=== PATIENT | male | born 1985 | race Hispanic/Latino ===

== ENCOUNTER 2024-05-08 16:56 | Inpatient (IN) | payer SELFPAY, OTHER ==
[~2024-05-08 16:56] MED LIST: Iopamidol-370 76% 500 ML MDV (1 ML CHARGE) ONE
[2024-05-08] MEDS ORDERED: Ondansetron PF 4 MG/2 ML Vial ONE (17:08)
[2024-05-08] MEDS ORDERED: fentaNYL 50 mcg/mL 1 mL Vial ONE (17:08)
[2024-05-08] MEDS ORDERED: Lidocaine/Transparent Dressing 1 EACH KIT ONE (17:09)
[2024-05-08 17:34] LABS: #Basophils Less than 0.03 10x3/uL (0.0-0.2); #Eosinphils Less than 0.03 10x3/uL (0.0-0.7); %Basophils 0.1 % (0.0-1.0); %Lymphocytes 10.3 % (21.0-51.0); %Monocytes 6.7 % (0.0-10.0); %Neutrophils 82.4 % (42.0-75.0); Hematocrit 44.3 % (42.0-52.0); Mean Corpuscular HGB CONC 36.1 g/dL (32.0-36.0); Mean Corpuscular Hemoglobin 34.5 pg (27.0-31.0); Mean Corpuscular Volume 95.5 fL (78.0-98.0); Mean Platelet Volume 8.8 fL (7.4-10.4); Platelet Count 306 10x3/uL (130-400); Red Blood Cell (RBC) Count 4.64 mill/uL (4.70-6.10)
[2024-05-08 17:52] LABS: ALT (SGPT) 52 U/L (8-55); AST (SGOT) 38 U/L (5-34); Albumin 4.3 g/dL (3.5-5.0); Alkaline Phosphatase 98 U/L (40-110); Anion Gap 18 mmol/L (10-20); BUN (Urea Nitrogen) 9 mg/dL (8.9-20.6); Bilirubin, Total 0.9 mg/dL (0.2-1.2); Calc. Creatinine Clearance 0 mL/min (70-130); Calcium 9.5 mg/dL (7.8-10.44); Carbon Dioxide 20 mmol/L (22-29); Chloride 104 mmol/L (98-107); Estimated GFR 115; Globulin 3.3 g/dL (2.4-3.5); Glucose 140 mg/dL (70-105); Potassium 3.6 mmol/L (3.5-5.1); Protein, Total 7.6 g/dL (6.0-8.3); Sodium 138 mmol/L (136-145)
[2024-05-08] MEDS ORDERED: CEFAZOLIN 2 GM VIAL ONE (19:15)
[2024-05-08] MEDS ORDERED: Morphine 4 MG/ML VIAL ONE (19:15)
[2024-05-08] MEDS ORDERED: Boostrix 0.5 ML (Tdap) VIAL (>/=7 yrs of age) ONE (19:15)
[2024-05-08] MEDS ORDERED: hydrALAZINE 20 MG/ML VIAL SLOW IVP PRN (19:45)
[2024-05-08] MEDS ORDERED: Ondansetron PF 4 MG/2 ML Vial IVP PRN (19:45)
[2024-05-08 21:32] VITALS: BMI 23.6
[2024-05-08] MEDS: traMADol HCl 50 MG TAB PO PRN (21:42)
[2024-05-08] MEDS: Dexamethasone 4 mg/ml Vial SLOW IVP SCH (21:43)
[2024-05-08] MEDS: Famotidine/PF 20 mg/2ml Vial SLOW IVP SCH (21:43)
[2024-05-09] MEDS: Dexamethasone 4 mg/ml Vial SLOW IVP SCH (04:59)
[2024-05-09 05:24] LABS: #Basophils Less than 0.03 10x3/uL (0.0-0.2); #Eosinphils Less than 0.03 10x3/uL (0.0-0.7); %Basophils 0.1 % (0.0-1.0); %Lymphocytes 6.6 % (21.0-51.0); %Monocytes 2.7 % (0.0-10.0); %Neutrophils 90.1 % (42.0-75.0); Hematocrit 45.1 % (42.0-52.0); Hemoglobin 15.7 g/dL (14.0-18.0); Mean Corpuscular HGB CONC 34.8 g/dL (32.0-36.0); Mean Corpuscular Hemoglobin 34.1 pg (27.0-31.0); Mean Platelet Volume 8.9 fL (7.4-10.4); Platelet Count 303 10x3/uL (130-400); RBC Distribution Width 12.1 % (11.5-14.5)
[2024-05-09 05:34] LABS: Anion Gap 13 mmol/L (10-20); BUN (Urea Nitrogen) 8 mg/dL (8.9-20.6); Calc. Creatinine Clearance 95 mL/min (70-130); Calcium 9.3 mg/dL (7.8-10.44); Carbon Dioxide 24 mmol/L (22-29); Chloride 102 mmol/L (98-107); Estimated GFR 115; Glucose 133 mg/dL (70-105); Potassium 4.2 mmol/L (3.5-5.1); Sodium 135 mmol/L (136-145)
[2024-05-10] MEDS: Dexamethasone 4 mg/ml Vial SLOW IVP SCH (08:39)
[2024-05-10] MEDS: Acetaminophen 325 MG TAB PO PRN (13:35)
[2024-05-10] MEDS: TETANUS, DIPHTHERIA TOX,ADULT (TDVAX) 0.5 ML VIAL IM ONE (19:31)
[2024-05-10] MEDS: Morphine 4 MG/ML VIAL SLOW IVP PRN (22:21)
[2024-05-11] MEDS ORDERED: Vancomycin 1 GM VIAL ONE (06:26)
[2024-05-11] MEDS ORDERED: Bacitracin Zinc Ointment 30 gm TUBE ONE (06:26)
[2024-05-11] MEDS ORDERED: Lidocaine 1% PF 5 ML VIAL ONE (06:50)
[2024-05-11] MEDS ORDERED: Fentanyl 250 MCG/5 ML VIAL ONE (06:50)
[2024-05-11] MEDS ORDERED: Rocuronium Bromide 10 MG/ML (10ML VIAL) ONE (06:50)
[2024-05-11] MEDS ORDERED: PROPOFOL 20 ML ONE (06:50)
[2024-05-11] MEDS ORDERED: Sodium Chloride 0.9% 100 ML ONE ×2 (07:07→09:32)
[2024-05-11] MEDS ORDERED: CEFAZOLIN 2 GM VIAL ONE (07:07)
[2024-05-11] MEDS ORDERED: CEFAZOLIN 2 GM in Sodium Chloride 0.9% 100 ML IVPB SCH (07:30)
[2024-05-11] MEDS ORDERED: Esmolol 100 MG/10 ML VIAL ONE (07:44)
[2024-05-11] MEDS ORDERED: Dexamethasone 4 mg/ml Vial ONE (08:05)
[2024-05-11] MEDS ORDERED: Vecuronium 10 MG VIAL ONE (08:39)
[2024-05-11] MEDS ORDERED: Dexmedetomidine 200 MCG/2 ML VIAL ONE (09:31)
[2024-05-11] MEDS ORDERED: Ondansetron PF 4 MG/2 ML Vial ONE (09:35)
[2024-05-11] MEDS ORDERED: Lidocaine 2% PF 5 ML VIAL ONE (09:37)
[2024-05-11] MEDS ORDERED: Glycopyrrolate 0.2 MG/ML 5 ML SYRINGE ONE (09:49)
[2024-05-11] MEDS ORDERED: NEOSTIGMINE 3 MG/3 ML SYRINGE ONE (09:49)
[2024-05-11] MEDS ORDERED: Promethazine HCl 25 MG/ML VIAL IM PRN (09:52)
[2024-05-11] MEDS ORDERED: HYDROmorphone 2 MG/ML VIAL SLOW IVP PRN (09:52)
[2024-05-11] MEDS ORDERED: Morphine Sulfate 2 MG/ML SYRINGE SLOW IVP PRN (09:52)
[2024-05-11] MEDS ORDERED: Ondansetron HCl/PF 4 MG/2 ML Vial IVP PRN (09:52)
[2024-05-11] MEDS ORDERED: PACU-Morphine 4MG/ML VIAL SLOW IVP PRN (09:52)
[2024-05-11] MEDS ORDERED: HYDROmorphone 0.5 MG/0.5 ML SYRINGE ONE ×3 (10:29→10:53)
[2024-05-11] MEDS ORDERED: fentaNYL 50 mcg/mL 1 mL Vial ONE (11:04)
[2024-05-11] MEDS: CEFAZOLIN 2 GM in Sodium Chloride 0.9% 100 ML IVPB SCH (12:56)
[2024-05-11 13:08] LABS: #Basophils Less than 0.03 10x3/uL (0.0-0.2); #Eosinphils Less than 0.03 10x3/uL (0.0-0.7); %Basophils 0.1 % (0.0-1.0); %Lymphocytes 3.5 % (21.0-51.0); %Monocytes 5.3 % (0.0-10.0); %Neutrophils 90.1 % (42.0-75.0); Hematocrit 42.5 % (42.0-52.0); Hemoglobin 15.1 g/dL (14.0-18.0); Mean Corpuscular HGB CONC 35.5 g/dL (32.0-36.0); Mean Corpuscular Hemoglobin 33.9 pg (27.0-31.0); Mean Corpuscular Volume 95.5 fL (78.0-98.0); Mean Platelet Volume 9.1 fL (7.4-10.4); Platelet Count 299 10x3/uL (130-400); RBC Distribution Width 11.9 % (11.5-14.5); Red Blood Cell (RBC) Count 4.45 mill/uL (4.70-6.10)
[2024-05-11 13:15] LABS: Anion Gap 12 mmol/L (10-20); BUN (Urea Nitrogen) 15 mg/dL (8.9-20.6); Calc. Creatinine Clearance 94 mL/min (70-130); Calcium 8.4 mg/dL (7.8-10.44); Carbon Dioxide 23 mmol/L (22-29); Chloride 103 mmol/L (98-107); Estimated GFR 114; Glucose 135 mg/dL (70-105); Potassium 4.1 mmol/L (3.5-5.1); Sodium 134 mmol/L (136-145)
[2024-05-11] MEDS: tiZANidine HCl 4 MG TAB PO PRN (19:18)
[2024-05-11] MEDS ORDERED: Benzocaine/Menthol 1 LOZ LOZ PO PRN (20:05)
[2024-05-11] MEDS ORDERED: HYDROcodone/Acetaminophen 10/325 mg Tablet PO PRN (20:06)
[2024-05-11] MEDS: HYDROcodone/Acetaminophen 10/325 mg Tablet PO PRN (20:59)
[2024-05-12 05:35] LABS: #Basophils Less than 0.03 10x3/uL (0.0-0.2); #Eosinphils Less than 0.03 10x3/uL (0.0-0.7); %Basophils 0.1 % (0.0-1.0); %Lymphocytes 5.6 % (21.0-51.0); %Monocytes 11.8 % (0.0-10.0); %Neutrophils 81.7 % (42.0-75.0); Hematocrit 42.4 % (42.0-52.0); Mean Corpuscular HGB CONC 35.4 g/dL (32.0-36.0); Mean Corpuscular Hemoglobin 33.6 pg (27.0-31.0); Mean Corpuscular Volume 95.1 fL (78.0-98.0); Platelet Count 283 10x3/uL (130-400); RBC Distribution Width 11.8 % (11.5-14.5); Red Blood Cell (RBC) Count 4.46 mill/uL (4.70-6.10)
[2024-05-12 06:56] LABS: Anion Gap 14 mmol/L (10-20); BUN (Urea Nitrogen) 13 mg/dL (8.9-20.6); Calc. Creatinine Clearance 103 mL/min (70-130); Calcium 8.4 mg/dL (7.8-10.44); Carbon Dioxide 22 mmol/L (22-29); Chloride 102 mmol/L (98-107); Estimated GFR 117; Glucose 116 mg/dL (70-105); Potassium 3.8 mmol/L (3.5-5.1); Sodium 134 mmol/L (136-145)
[2024-05-12] MEDS: Senokot S 8.6-50 MG TAB PO SCH (07:51)
[2024-05-13] MEDS: Gabapentin 300 MG CAP PO SCH (08:44)
[2024-05-13] MEDS: Acetaminophen 325 MG TAB PO SCH ×2 (09:00→15:31)
[2024-05-14 06:54] LABS: #Basophils 0.03 10x3/uL (0.0-0.2); #Eosinphils Less than 0.03 10x3/uL (0.0-0.7); %Basophils 0.2 % (0.0-1.0); %Eosinophils 0.1 % (0.0-10.0); %Lymphocytes 5.3 % (21.0-51.0); %Monocytes 5.6 % (0.0-10.0); %Neutrophils 87.8 % (42.0-75.0); Hematocrit 41.1 % (42.0-52.0); Hemoglobin 14.6 g/dL (14.0-18.0); Mean Corpuscular HGB CONC 35.5 g/dL (32.0-36.0); Mean Corpuscular Volume 95.6 fL (78.0-98.0); Mean Platelet Volume 9.1 fL (7.4-10.4); Platelet Count 290 10x3/uL (130-400); RBC Distribution Width 11.8 % (11.5-14.5)
[2024-05-14] MEDS: Ibuprofen 600 MG TAB PO SCH (10:28)
[2024-05-14] MEDS: methylPREDNISolone 4 mg Tablet PO SCH (12:53)
[2024-05-14 15:43] VITALS: BP 146/92; TEMP 98.8
[2024-05-14] MEDS: Acetaminophen/Codeine 30-300mg Tablet PO PRN (15:57)
[2024-05-15] MEDS ORDERED: methylPREDNISolone 4 mg Tablet PO SCH ×2 (08:00→21:00)
[2024-05-16] MEDS ORDERED: methylPREDNISolone 4 mg Tablet PO SCH (08:00)
[2024-05-17] MEDS ORDERED: methylPREDNISolone 4 mg Tablet PO SCH (08:00)
[2024-05-18] MEDS ORDERED: methylPREDNISolone 4 mg Tablet PO SCH (08:00)
[2024-05-19] MEDS ORDERED: methylPREDNISolone 4 mg Tablet PO SCH (08:00)
== END 2024-05-14 17:00 | disposition home or self-care (01) | DRG 455 ==
LOC: ERS 16:56 → SURG A 19:45
PROVIDERS: ADMIT Student in an Organized Health Care Education/Training Program; ATTEND Student in an Organized Health Care Education/Training Program
PROC: 0HQ0XZZ Repair Scalp Skin, External Approach (ICD-10-PCS; principal; 2024-05-08)
PROC: 0RG20A0 Fusion of 2 or more Cervical Vertebral Joints with Interbody Fusion Device, Anterior Approach, Anterior Column, Open Approach (ICD-10-PCS; 2024-05-11)
PROC: 0RG2071 Fusion of 2 or more Cervical Vertebral Joints with Autologous Tissue Substitute, Posterior Approach, Posterior Column, Open Approach (ICD-10-PCS; 2024-05-11)
PROC: 0RB30ZZ Excision of Cervical Vertebral Disc, Open Approach (ICD-10-PCS; 2024-05-11)
DX: S12.300A Unspecified displaced fracture of fourth cervical vertebra, initial encounter for closed fracture (principal); S12.400A Unspecified displaced fracture of fifth cervical vertebra, initial encounter for closed fracture; S06.0X0A Concussion without loss of consciousness, initial encounter; W18.30XA Fall on same level, unspecified, initial encounter; S01.01XA Laceration without foreign body of scalp, initial encounter; M48.02 Spinal stenosis, cervical region; Z79.899 Other long term (current) drug therapy; S80.811A Abrasion, right lower leg, initial encounter
CPT/HCPCS: 12005; 36415; 70450; 71045; 71260; 72125; 72141; 74177; 80048; 80053; 85025; 86850; 86870; 86900; 86901; 86922; 90471; 90715; 93005; 96365; 96375; C1713; C1776; J1100; J1170; J2001; J2270; J2405; J2704; J3010; J3370; J3490; J7509; Q9967; S0028

== ENCOUNTER 2024-07-16 08:30 | Outpatient (CLI) | payer OTHER | END 2024-07-16 08:31 | disposition home or self-care (01) | LOC: BICRAD 08:30 | PROVIDERS: ATTEND Physician Assistant | DX: S12.9XXD Fracture of neck, unspecified, subsequent encounter (principal); Z98.890 Other specified postprocedural states | CPT/HCPCS: 72040 ==